=== PATIENT | male | born 1995 | race Caucasian/White ===

== ENCOUNTER 2022-05-05 20:47 | Emergency (ER) | payer OTHER ==
[2022-05-05] MEDS ORDERED: Acetaminophen/HYDROcodone 325-5 MG Tab PO ONE (20:48)
[2022-05-05] MEDS ORDERED: Insulin Lispro 100 Unit/ML 3 ML KwikPen SUBCUT ONE (20:48)
[2022-05-05] MEDS ORDERED: Morphine 2 MG/ML SYRINGE IVPUSH ONE (21:10)
[2022-05-05] MEDS ORDERED: Ketorolac 30 MG/ML SDV IVPUSH ONE (21:10)
[2022-05-05] MEDS ORDERED: Ondansetron 4 MG/2 ML SDV IVPUSH ONE (21:10)
[2022-05-05] MEDS ORDERED: Sodium Chloride 0.9% 1,000 ML IV SCH (21:15)
[2022-05-05] MEDS: Sodium Chloride 0.9% 10 ML Syringe FLUSH PRN ×3 (21:39→23:21)
[2022-05-05 21:56] LABS: ESTIMATED GFR 106 mL/min (>60)
[2022-05-05] MEDS ORDERED: Insulin Lispro 100 Unit/ML 3 ML KwikPen SUBCUT STA (22:12)
[2022-05-05] MEDS ORDERED: 50% Dextrose in Water 50 ML Syringe IVPUSH PRN (22:12)
[2022-05-05] MEDS ORDERED: Glucagon,Human Recombinant 1 MG Vial IM PRN (22:12)
[2022-05-05] MEDS ORDERED: Iopamidol 755 Mg/ML 100 ML Bottle IV ONE (22:44)
[2022-05-05] MEDS ORDERED: Iopamidol 755 MG/ML 150 ML Bottle IV ONE (22:53)
[2022-05-05] MEDS ORDERED: Morphine 2 MG/ML SYRINGE IVPUSH STA (22:55)
[2022-05-06] MEDS ORDERED: Acetaminophen/HYDROcodone 325-5 MG Tab PO STA
[2022-05-06] MEDS ORDERED: Potassium Chloride 20 MEQ Tab.ER PO STA (00:01)
== END 2022-05-06 00:20 | disposition home or self-care (01) ==
LOC: FB.ED 20:47
DX: K76.0 Fatty (change of) liver, not elsewhere classified (principal); Z88.8 Allergy status to other drugs, medicaments and biological substances; Z79.899 Other long term (current) drug therapy
CPT/HCPCS: 36415; 74177; 80053; 80307; 82150; 82947; 83690; 85025; 96361; 96374; 96375; 96376; 99283; 99284; A9270; J1815; J1885; J2270; J2405; J3490; J7030; Q9967

== ENCOUNTER 2022-07-13 07:18 | Emergency (ER) | payer OTHER ==
[2022-07-13] MEDS ORDERED: Albuterol/Ipratropium 3.0-0.5 MG/3 ML Neb Soln ONE (07:33)
[2022-07-13] MEDS ORDERED: Albuterol/Ipratropium 3.0-0.5 MG/3 ML Neb Soln NEB ONE (07:40)
[2022-07-13 07:55] LABS: ESTIMATED GFR 130 mL/min (>60)
== END 2022-07-13 09:26 | disposition home or self-care (01) ==
LOC: FB.ED 07:18
DX: J45.901 Unspecified asthma with (acute) exacerbation (principal); J21.9 Acute bronchiolitis, unspecified; K76.0 Fatty (change of) liver, not elsewhere classified; E11.65 Type 2 diabetes mellitus with hyperglycemia; I10 Essential (primary) hypertension; Z88.8 Allergy status to other drugs, medicaments and biological substances; Z79.899 Other long term (current) drug therapy; Z20.822 Contact with and (suspected) exposure to COVID-19; Z72.0 Tobacco use
CPT/HCPCS: 36415; 71046; 80053; 85025; 99285; J7620; U0002

== ENCOUNTER 2022-07-27 08:36 | Emergency (ER) | payer OTHER ==
[2022-07-30 19:26] LABS: ESTIMATED GFR 143 mL/min (>60)
== END 2022-07-27 11:44 | disposition home or self-care (01) ==
LOC: FB.ED 08:36
DX: E78.01 Familial hypercholesterolemia (principal); R00.0 Tachycardia, unspecified; R81 Glycosuria; J45.909 Unspecified asthma, uncomplicated; E78.00 Pure hypercholesterolemia, unspecified; I10 Essential (primary) hypertension; E11.9 Type 2 diabetes mellitus without complications; Z88.8 Allergy status to other drugs, medicaments and biological substances; Z79.899 Other long term (current) drug therapy; Z79.84 Long term (current) use of oral hypoglycemic drugs; Z86.16 Personal history of COVID-19
CPT/HCPCS: 36415; 80053; 80061; 81001; 84244; 85025; 87086; 99283

== ENCOUNTER 2022-10-12 18:52 | Emergency (ER) | payer OTHER ==
[2022-10-12 19:29] LABS: ESTIMATED GFR 124 mL/min (>60)
[2022-10-12] MEDS ORDERED: Ketorolac 30 MG/ML SDV IVPUSH ONE (19:30)
[2022-10-12] MEDS ORDERED: Ketorolac 30 MG/ML SDV IM ONE (19:43)
== END 2022-10-12 20:05 | disposition home or self-care (01) ==
LOC: FB.ED 18:52
DX: A08.4 Viral intestinal infection, unspecified (principal); K76.0 Fatty (change of) liver, not elsewhere classified; E87.6 Hypokalemia; E78.00 Pure hypercholesterolemia, unspecified; I10 Essential (primary) hypertension; E11.9 Type 2 diabetes mellitus without complications; E66.9 Obesity, unspecified; Z68.35 Body mass index [BMI] 35.0-35.9, adult; Z88.8 Allergy status to other drugs, medicaments and biological substances; Z79.899 Other long term (current) drug therapy; Z79.4 Long term (current) use of insulin; Z86.16 Personal history of COVID-19
CPT/HCPCS: 36415; 80053; 83605; 85025; 86140; 96372; 99284; J1885

== ENCOUNTER 2022-10-29 05:24 | Emergency (ER) | payer SELFPAY ==
[2022-10-29] MEDS ORDERED: Ondansetron 4 MG/2 ML SDV IVPUSH ONE (06:02)
[2022-10-29] MEDS ORDERED: Alum Hydroxide/Mag Hydroxide 30 ML, Lidocaine 2% 15 ML PO ONE ×2 (06:02)
[2022-10-29] MEDS ORDERED: Sodium Chloride 0.9% 1,000 ML IV ONE ×2 (06:02→07:02)
[2022-10-29] MEDS ORDERED: Ketorolac 30 MG/ML SDV IVPUSH ONE (06:02)
[2022-10-29 06:16] LABS: ESTIMATED GFR 130 mL/min (>60)
[2022-10-29] MEDS ORDERED: Morphine 4 MG/ML VIAL IVPUSH ONE ×2 (07:08→07:46)
[2022-10-29] MEDS ORDERED: Potassium Chloride 20 MEQ Tab.ER PO ONE (07:14)
[2022-10-29 07:30] LABS: CORONAVIRUS COVID-19 NAA NEGATIVE (NEGATIVE)
[2022-10-29] MEDS ORDERED: Magnesium Sulfate/Water 2 GM in Premix Bag 1 BAG IV ONE (07:43)
[2022-10-29] MEDS ORDERED: Iopamidol 755 MG/ML 150 ML Bottle IV ONE (08:03)
[2022-10-29] MEDS ORDERED: Aluminum Hydroxide/Magnesium Hydroxide Susp 30 ML Cup PO ONE (09:22)
== END 2022-10-29 09:50 | disposition home or self-care (01) ==
LOC: FB.ED 05:24
DX: K21.9 Gastro-esophageal reflux disease without esophagitis (principal); E86.0 Dehydration; E83.42 Hypomagnesemia; E87.6 Hypokalemia; R16.2 Hepatomegaly with splenomegaly, not elsewhere classified; E78.00 Pure hypercholesterolemia, unspecified; I10 Essential (primary) hypertension; J45.909 Unspecified asthma, uncomplicated; E11.9 Type 2 diabetes mellitus without complications; E66.9 Obesity, unspecified; Z68.35 Body mass index [BMI] 35.0-35.9, adult; Z72.0 Tobacco use; Z88.8 Allergy status to other drugs, medicaments and biological substances; Z79.899 Other long term (current) drug therapy; Z79.4 Long term (current) use of insulin; Z20.822 Contact with and (suspected) exposure to COVID-19
CPT/HCPCS: 0241U; 36415; 74177; 80053; 81001; 83605; 83690; 83735; 84484; 85025; 86140; 93005; 93010; 96361; 96365; 96375; 96376; 99284; 99285-25; A9270-GY; J1885; J2270; J2405; J3475; J7030; Q9967

== ENCOUNTER 2022-12-08 00:35 | Emergency (ER) | payer SELFPAY ==
[2022-12-08] MEDS ORDERED: traMADol 50 MG Tab PO ONE (00:36)
[2022-12-08] MEDS: methylPREDNISolone Sodium Succinate 40 MG/1 ML SDV IM ONE (01:16)
[2022-12-08] MEDS: HYDROmorphone 2 MG/ML SDV IM ONE (01:16)
== END 2022-12-08 01:32 | disposition home or self-care (01) ==
LOC: FB.ED 00:35
DX: M54.50 Low back pain, unspecified (principal); E11.42 Type 2 diabetes mellitus with diabetic polyneuropathy; E78.00 Pure hypercholesterolemia, unspecified; I10 Essential (primary) hypertension; J45.909 Unspecified asthma, uncomplicated; E66.9 Obesity, unspecified; Z88.8 Allergy status to other drugs, medicaments and biological substances; Z79.899 Other long term (current) drug therapy; Z86.16 Personal history of COVID-19; Z68.35 Body mass index [BMI] 35.0-35.9, adult
CPT/HCPCS: 96372; 99283; A9270; J1170; J2920

== ENCOUNTER 2023-01-04 19:09 | Emergency (ER) | payer OTHER ==
[2023-01-04] MEDS ORDERED: Acetaminophen/HYDROcodone 325-5 MG Tab PO ONE (19:10)
[2023-01-04] MEDS ORDERED: HYDROmorphone 2 MG/ML SDV IVPUSH ONE (19:27)
[2023-01-04] MEDS ORDERED: Sodium Chloride 0.9% 1,000 ML IV ONE (19:27)
[2023-01-04 19:47] LABS: ESTIMATED GFR 120 mL/min (>60)
[2023-01-04] MEDS ORDERED: Magnesium Sulfate/Water 2 GM in Premix Bag 1 BAG IV ONE (20:15)
[2023-01-04] MEDS ORDERED: Ketorolac 30 MG/ML SDV IVPUSH ONE (20:27)
[2023-01-04] MEDS ORDERED: Acetaminophen 500 MG Tab PO ONE (20:27)
== END 2023-01-04 22:23 | disposition home or self-care (01) ==
LOC: FB.ED 19:09
DX: A08.4 Viral intestinal infection, unspecified (principal); K85.90 Acute pancreatitis without necrosis or infection, unspecified; E78.1 Pure hyperglyceridemia; R11.2 Nausea with vomiting, unspecified; E78.00 Pure hypercholesterolemia, unspecified; I10 Essential (primary) hypertension; J45.909 Unspecified asthma, uncomplicated; E11.9 Type 2 diabetes mellitus without complications; E66.9 Obesity, unspecified; Z88.8 Allergy status to other drugs, medicaments and biological substances; Z86.16 Personal history of COVID-19; Z79.4 Long term (current) use of insulin; Z79.899 Other long term (current) drug therapy; Z68.34 Body mass index [BMI] 34.0-34.9, adult
CPT/HCPCS: 36415; 80053; 83690; 83735; 85025; 86140; 96361; 96365; 96366; 96375; 99283; 99284-25; A9270-GY; J1170; J1885; J3475; J7030

== ENCOUNTER 2023-01-11 15:42 | Emergency (ER) | payer OTHER ==
[2023-01-11 16:36] LABS: ESTIMATED GFR 124 mL/min (>60)
== END 2023-01-11 17:56 | disposition home or self-care (01) ==
LOC: FB.ED 15:42
DX: M51.36 Other intervertebral disc degeneration, lumbar region (principal); G89.29 Other chronic pain; E11.9 Type 2 diabetes mellitus without complications; E78.00 Pure hypercholesterolemia, unspecified; I10 Essential (primary) hypertension; J45.909 Unspecified asthma, uncomplicated; E66.9 Obesity, unspecified; Z68.35 Body mass index [BMI] 35.0-35.9, adult; Z88.8 Allergy status to other drugs, medicaments and biological substances; Z79.4 Long term (current) use of insulin; Z79.899 Other long term (current) drug therapy; Z86.16 Personal history of COVID-19
CPT/HCPCS: 36415; 80053; 80307; 81001; 85025; 99283

== ENCOUNTER 2023-02-01 06:20 | Emergency (ER) | payer SELFPAY ==
[2023-02-01] MEDS ORDERED: hydrOXYzine HCl 50 MG/ML SDV IM ONE (06:42)
[2023-02-01] MEDS ORDERED: Morphine 10 MG/ML SDV IM ONE (06:42)
[2023-02-01 07:10] LABS: ESTIMATED GFR 130 mL/min (>60)
[2023-02-01] MEDS ORDERED: Alum Hydroxide/Mag Hydroxide 15 ML, Lidocaine 2% 15 ML PO ONE ×2 (08:44)
[2023-02-01] MEDS ORDERED: Sucralfate 1 GM Tab PO ONE (08:45)
== END 2023-02-01 09:25 | disposition home or self-care (01) ==
LOC: FB.ED 06:20
DX: K52.9 Noninfective gastroenteritis and colitis, unspecified (principal); K20.90 Esophagitis, unspecified without bleeding; E78.00 Pure hypercholesterolemia, unspecified; I10 Essential (primary) hypertension; J45.909 Unspecified asthma, uncomplicated; E66.9 Obesity, unspecified; Z88.8 Allergy status to other drugs, medicaments and biological substances; Z79.899 Other long term (current) drug therapy; Z72.0 Tobacco use; Z68.36 Body mass index [BMI] 36.0-36.9, adult
CPT/HCPCS: 36415; 80053; 83605; 85025; 86140; 96372; 99284; A9270; J2270; J3410

== ENCOUNTER 2023-02-10 12:46 | Emergency (ER) | payer BC, OTHER ==
[2023-02-10] MEDS ORDERED: Sodium Chloride 0.9% 10 ML Syringe FLUSH PRN (13:08)
[2023-02-10] MEDS ORDERED: Ondansetron 4 MG/2 ML SDV IVPUSH ONE (13:11)
[2023-02-10] MEDS ORDERED: Ketorolac 30 MG/ML SDV IVPUSH ONE (13:12)
[2023-02-10] MEDS ORDERED: Morphine 4 MG/ML VIAL IVPUSH ONE (13:12)
[2023-02-10] MEDS ORDERED: Sodium Chloride 0.9% 1,000 ML IV SCH (13:15)
[2023-02-10] MEDS ORDERED: Iopamidol 755 Mg/ML 100 ML Bottle IV ONE (13:44)
[2023-02-10] MEDS ORDERED: Magnesium Sulfate/Water 2 GM in Premix Bag 1 BAG IV ONE (14:08)
[2023-02-10] MEDS ORDERED: Magnesium Sulfate/Water 50 ML ONE (14:13)
[2023-02-10 14:26] LABS: ESTIMATED GFR 120 mL/min (>60)
[2023-02-10] MEDS ORDERED: Acetaminophen/oxyCODONE 325-5 MG Tab PO STA (15:04)
== END 2023-02-10 15:35 | disposition home or self-care (01) ==
LOC: FB.ED 12:46
DX: K29.70 Gastritis, unspecified, without bleeding (principal); K21.9 Gastro-esophageal reflux disease without esophagitis; E83.42 Hypomagnesemia; E78.00 Pure hypercholesterolemia, unspecified; I10 Essential (primary) hypertension; E11.9 Type 2 diabetes mellitus without complications; F17.210 Nicotine dependence, cigarettes, uncomplicated; E66.9 Obesity, unspecified; Z68.36 Body mass index [BMI] 36.0-36.9, adult; Z88.8 Allergy status to other drugs, medicaments and biological substances; Z79.899 Other long term (current) drug therapy; Z79.4 Long term (current) use of insulin
CPT/HCPCS: 36415; 74177; 80053; 81001; 82150; 83690; 83735; 85025; 96361; 96365; 96375; 96376; 99284; A9270; J1885; J2270; J2405; J3475; J3490; J7030; Q9967; 99283

== ENCOUNTER 2023-02-22 20:17 | Emergency (ER) | payer BC ==
[2023-02-22] MEDS ORDERED: Acetaminophen 500 MG Tab PO ONE (23:12)
[2023-02-23 01:20] LABS: ESTIMATED GFR 136 mL/min (>60)
[2023-02-23 01:22] LABS: ACETAMINOPHEN < 10 ug/mL (<2)
== END 2023-02-23 00:19 | disposition home or self-care (01) ==
LOC: FB.ED 20:17
DX: F43.20 Adjustment disorder, unspecified (principal); R45.851 Suicidal ideations; E11.65 Type 2 diabetes mellitus with hyperglycemia; E78.00 Pure hypercholesterolemia, unspecified; I10 Essential (primary) hypertension; J45.909 Unspecified asthma, uncomplicated; E66.9 Obesity, unspecified; Z91.199 Patient's noncompliance with other medical treatment and regimen due to unspecified reason; Z68.30 Body mass index [BMI] 30.0-30.9, adult; Z88.8 Allergy status to other drugs, medicaments and biological substances; Z86.16 Personal history of COVID-19; Z72.0 Tobacco use; Z79.899 Other long term (current) drug therapy; Z79.4 Long term (current) use of insulin
CPT/HCPCS: 36415; 80053; 80143; 80179; 80307; 84443; 85025; 99284; A9270-GY

== ENCOUNTER 2023-02-28 07:33 | Emergency (ER) | payer BC | END 2023-02-28 09:01 | disposition home or self-care (01) | LOC: FB.ED 07:33 | DX: M79.661 Pain in right lower leg (principal); I10 Essential (primary) hypertension; E78.00 Pure hypercholesterolemia, unspecified; J45.909 Unspecified asthma, uncomplicated; E11.9 Type 2 diabetes mellitus without complications; E66.9 Obesity, unspecified; Z68.37 Body mass index [BMI] 37.0-37.9, adult; Z86.16 Personal history of COVID-19; Z88.8 Allergy status to other drugs, medicaments and biological substances; Z79.4 Long term (current) use of insulin; Z79.899 Other long term (current) drug therapy; Z72.0 Tobacco use | CPT/HCPCS: 73590-RT; 99283 ==

== ENCOUNTER 2023-02-28 21:24 | Emergency (ER) | payer BC ==
[2023-02-28] MEDS ORDERED: Iopamidol 755 Mg/ML 100 ML Bottle IV ONE (22:11)
[2023-02-28] MEDS ORDERED: Ondansetron 4 MG/2 ML SDV IVPUSH ONE (22:14)
[2023-02-28] MEDS ORDERED: Ketorolac 30 MG/ML SDV IVPUSH ONE (22:14)
[2023-03-01 01:52] LABS: SODIUM,NA 129 mmol/L (135-145)
[2023-03-01 01:53] LABS: CARBON DIOXIDE,CO2 18 mmol/L (21-32); CHLORIDE,CL 97 mmol/L (100-110); POTASSIUM,K 4.1 mmol/L (3.5-5.3)
[2023-03-01 01:54] LABS: GLUCOSE RANDOM 419 mg/dL (80-116)
[2023-03-01 01:55] LABS: BLOOD UREA NITROGEN,BUN 11 mg/dL (7-18); CREATININE 0.6 mg/dL (0.70-1.30); ESTIMATED GFR 136 mL/min (>60)
[2023-03-01 01:57] LABS: BUN/CREATININE RATIO 17.2 (9-20); CALCIUM 8.4 mg/dL (8.6-10.2); PROTEIN TOTAL,TP 6.7 g/dL (6.0-8.0)
[2023-03-01 01:58] LABS: A/G RATIO 0.5; ALBUMIN 2.3 g/dL (3.5-5.2)
[2023-03-01 01:59] LABS: ALKALINE PHOSPHATASE 138 IU/L (56-112); BILIRUBIN TOTAL 0.5 mg/dL (0.1-1.3)
[2023-03-01 02:00] LABS: ALANINE AMINOTRANSFERASE,ALT 49 U/L (12-36); ASPARTATE AMNIOTRANSFERASE,AST 37 IU/L (5-25)
[2023-03-01 02:01] LABS: AMYLASE 77 U/L (25-115)
[2023-03-01 02:59] LABS: RED BLOOD CELL COUNT 4.56 x10(6)uL (3.90-5.90); WHITE BLOOD CELL COUNT,WBC 15.2 x10-3/uL (3.2-10.1)
[2023-03-01 03:00] LABS: PLATELET COUNT,PLT 336 x10(3)uL (117-477)
[2023-03-01 03:10] LABS: HEMOGLOBIN 23.8 g/dL (12.9-17.7)
[2023-03-01 03:11] LABS: HEMATOCRIT 38.7 % (38.3-50.1); MEAN CORPUSCULAR VOLUME 84.9 fL (80.8-98.7)
[2023-03-01 03:12] LABS: MEAN CORPUSCULAR HEMOGLOBIN 52.2 pg (27.0-33.3); MEAN CORPUSCULAR HGB CONC 61.5 g/dL (28.7-35.3)
[2023-03-01 03:14] LABS: MEAN PLATELET VOLUME 11.3 fL (6.7-11.0); RED CELL DISTRIBUTION WIDTH 12.2 % (12.4-15.0)
[2023-03-01 03:15] LABS: LYMPHOCYTES ABSOLUTE AUTO 1.8 x10-3/uL (0.5-4.5); MONOCYTES ABSOLUTE AUTO 1.2 x10-3/uL (0.0-1.2); NEUTROPHILS ABSOLUTE AUTO 7.8 x10-3/uL (1.7-6.9)
[2023-03-01 03:17] LABS: BAND PERCENT MAN 2 % (0-6); LYMPHOCYTES PERCENT MAN 12 % (13-37); SEG NEUTROPHILS PERCENT MAN 51 % (46-82)
[2023-03-01 03:18] LABS: MONOCYTES PERCENT MAN 8 % (4-12)
== END 2023-02-28 23:34 | disposition home or self-care (01) ==
LOC: FB.ED 21:24
DX: R10.12 Left upper quadrant pain (principal); E78.00 Pure hypercholesterolemia, unspecified; I10 Essential (primary) hypertension; E11.9 Type 2 diabetes mellitus without complications; E66.9 Obesity, unspecified; Z68.37 Body mass index [BMI] 37.0-37.9, adult; Z86.16 Personal history of COVID-19; Z88.8 Allergy status to other drugs, medicaments and biological substances; Z79.899 Other long term (current) drug therapy; Z79.4 Long term (current) use of insulin
CPT/HCPCS: 36415; 74177; 80053; 82150; 83690; 85025; 96374; 96375; 99283; 99284; J1885; J2405; Q9967

== ENCOUNTER 2023-03-08 19:08 | Emergency (ER) | payer BC ==
[2023-03-08] MEDS ORDERED: Ondansetron 4 MG Tab.DIS PO ONE (19:09)
[2023-03-08] MEDS ORDERED: Morphine 4 MG/ML VIAL IVPUSH ONE (19:22)
[2023-03-08] MEDS ORDERED: Sodium Chloride 0.9% 10 ML Syringe FLUSH PRN (19:22)
[2023-03-08] MEDS ORDERED: Ondansetron 4 MG/2 ML SDV IVPUSH ONE (19:22)
[2023-03-08] MEDS ORDERED: Sodium Chloride 0.9% 1,000 ML IV SCH (19:30)
[2023-03-08 19:40] LABS: BASOPHILS ABSOLUTE AUTO 0.1 x10-3/uL (0.0-0.3); BASOPHILS PERCENT AUTO 0.9 % (0.3-3.8); EOSINOPHILS ABSOLUTE AUTO 0.1 x10-3/uL (0.0-0.6); EOSINOPHILS PERCENT AUTO 1.5 % (0.1-6.8); HEMATOCRIT 34.8 % (38.3-50.1); HEMOGLOBIN 11.7 g/dL (12.9-17.7); LYMPHOCYTES ABSOLUTE AUTO 3.7 x10-3/uL (0.5-4.5); LYMPHOCYTES PERCENT AUTO 42.8 % (15.8-45.3); MEAN CORPUSCULAR HEMOGLOBIN 29.1 pg (27.0-33.3); MEAN CORPUSCULAR HGB CONC 33.6 g/dL (28.7-35.3); MEAN CORPUSCULAR VOLUME 86.5 fL (80.8-98.7); MEAN PLATELET VOLUME 8.8 fL (6.7-11.0); MONOCYTES ABSOLUTE AUTO 0.5 x10-3/uL (0.0-1.2); MONOCYTES PERCENT AUTO 5.4 % (5.5-15.2); NEUTROPHILS ABSOLUTE AUTO 4.2 x10-3/uL (1.7-6.9); NEUTROPHILS PERCENT AUTO 49.4 % (40.3-71.8); PLATELET COUNT,PLT 307 x10(3)uL (117-477); RED BLOOD CELL COUNT 4.02 x10(6)uL (3.90-5.90); RED CELL DISTRIBUTION WIDTH 12.9 % (12.4-15.0); WHITE BLOOD CELL COUNT,WBC 8.5 x10-3/uL (3.2-10.1)
[2023-03-08 19:48] LABS: BLOOD UREA NITROGEN,BUN 15 mg/dL (7-18); BUN/CREATININE RATIO 16.7 (9-20); CALCIUM 8.8 mg/dL (8.6-10.2); CARBON DIOXIDE,CO2 27 mmol/L (21-32); CHLORIDE,CL 105 mmol/L (100-110); CREATININE 0.9 mg/dL (0.70-1.30); EST CRCL DRUG DOSING (CG) 139.33 mL/min; ESTIMATED GFR 120 mL/min (>60); GLUCOSE RANDOM 160 mg/dL (80-116); POTASSIUM,K 3.6 mmol/L (3.5-5.3); SODIUM,NA 142 mmol/L (135-145)
[2023-03-08 19:53] LABS: A/G RATIO 1.4; ALANINE AMINOTRANSFERASE,ALT 47 U/L (12-36); ALBUMIN 3.7 g/dL (3.5-5.2); ALKALINE PHOSPHATASE 42 IU/L (56-112); AMYLASE 41 U/L (25-115); ASPARTATE AMNIOTRANSFERASE,AST 64 IU/L (5-25); BILIRUBIN TOTAL 0.3 mg/dL (0.1-1.3); PROTEIN TOTAL,TP 6.4 g/dL (6.0-8.0)
[2023-03-08 19:54] LABS: MAGNESIUM 1.4 mg/dL (1.8-2.5)
[2023-03-08] MEDS ORDERED: Magnesium Sulfate/Water 2 GM in Premix Bag 1 BAG IV ONE ×2 (20:15→20:24)
[2023-03-08] MEDS ORDERED: Iopamidol 755 Mg/ML 100 ML Bottle IV ONE (20:17)
[2023-03-08] MEDS ORDERED: Ketorolac 30 MG/ML SDV IVPUSH ONE (21:18)
[2023-03-08 22:44] LABS: BILIRUBIN,URINE NEGATIVE (NEGATIVE); GLUCOSE,URINE NORMAL (NORMAL); KETONES,URINE NEGATIVE (NEGATIVE); LEUKOCYTE ESTERASE,URINE NEGATIVE (NEGATIVE); NITRITE,URINE NEGATIVE (NEGATIVE); OCCULT BLOOD,URINE NEGATIVE (NEGATIVE); PROTEIN,URINE NEGATIVE (NEGATIVE); UROBILINOGEN,URINE NORMAL (NEGATIVE)
[2023-03-08 22:52] LABS: APPEARANCE,URINE CLEAR (CLEAR); BACTERIA,URINE RARE (NS); COLOR,URINE YELLOW (YELLOW); RBC,URINE 0-5 (0-5); SQUAMOUS EPITHELIAL CELLS,UR RARE (NS,R,O); WBC,URINE 0-5 (0-5)
== END 2023-03-08 22:45 | disposition home or self-care (01) ==
LOC: FB.ED 19:08
DX: K85.90 Acute pancreatitis without necrosis or infection, unspecified (principal); E83.42 Hypomagnesemia; E78.1 Pure hyperglyceridemia; E78.00 Pure hypercholesterolemia, unspecified; I10 Essential (primary) hypertension; J45.909 Unspecified asthma, uncomplicated; E11.9 Type 2 diabetes mellitus without complications; E66.9 Obesity, unspecified; Z68.35 Body mass index [BMI] 35.0-35.9, adult; Z88.8 Allergy status to other drugs, medicaments and biological substances; Z79.899 Other long term (current) drug therapy; Z79.4 Long term (current) use of insulin
CPT/HCPCS: 36415; 74177; 80053; 80061; 81001; 82150; 83690; 83735; 85025; 96361; 96365; 96366; 96375; 99283; 99284-25; J1885; J2270; J2405; J3475; J7030; Q0162; Q9967

== ENCOUNTER 2023-04-06 19:36 | Emergency (ER) | payer BC, OTHER ==
[2023-04-06] MEDS ORDERED: Sodium Chloride 0.9% 10 ML Syringe FLUSH PRN (20:07)
[2023-04-06] MEDS ORDERED: Prochlorperazine 10 MG/2 ML SDV IVPUSH ONE (20:07)
[2023-04-06] MEDS ORDERED: diphenhydrAMINE 50 MG/ML SDV IVPUSH ONE (20:07)
[2023-04-06] MEDS ORDERED: Sodium Chloride 0.9% 1,000 ML IV ONE (20:07)
[2023-04-06] MEDS ORDERED: Ketorolac 30 MG/ML SDV IVPUSH ONE (20:09)
[2023-04-06 20:42] LABS: WHITE BLOOD CELL COUNT,WBC 9.2 x10-3/uL (3.2-10.1)
[2023-04-06 20:43] LABS: HEMATOCRIT 38.2 % (38.3-50.1); MEAN CORPUSCULAR VOLUME 86.1 fL (80.8-98.7); MEAN PLATELET VOLUME 8.6 fL (6.7-11.0); PLATELET COUNT,PLT 337 x10(3)uL (117-477); RED BLOOD CELL COUNT 4.44 x10(6)uL (3.90-5.90); RED CELL DISTRIBUTION WIDTH 13.4 % (12.4-15.0)
[2023-04-06 21:14] LABS: BILIRUBIN,URINE NEGATIVE (NEGATIVE); GLUCOSE,URINE NORMAL (NORMAL); KETONES,URINE NEGATIVE (NEGATIVE); LEUKOCYTE ESTERASE,URINE NEGATIVE (NEGATIVE); NITRITE,URINE NEGATIVE (NEGATIVE); OCCULT BLOOD,URINE NEGATIVE (NEGATIVE); PROTEIN,URINE 500 mg/dL (NEGATIVE); UROBILINOGEN,URINE NORMAL (NEGATIVE)
[2023-04-06 21:16] LABS: APPEARANCE,URINE CLEAR (CLEAR); BACTERIA,URINE RARE (NS); COLOR,URINE YELLOW (YELLOW); RBC,URINE 0-5 (0-5); SQUAMOUS EPITHELIAL CELLS,UR OCCASIONAL (NS,R,O); WBC,URINE 0-5 (0-5)
[2023-04-06 21:56] LABS: MEAN CORPUSCULAR HEMOGLOBIN 29.9 pg (27.0-33.3)
[2023-04-06 21:57] LABS: MEAN CORPUSCULAR HGB CONC 34.4 g/dL (28.7-35.3)
[2023-04-06 22:03] LABS: EOSINOPHILS PERCENT MAN 2 % (0-5); LYMPHOCYTES PERCENT MAN 46 % (13-37); MONOCYTES PERCENT MAN 3 % (4-12); SEG NEUTROPHILS PERCENT MAN 49 % (46-82)
[2023-04-07 00:17] LABS: POTASSIUM,K 3.5 mmol/L (3.5-5.3)
[2023-04-07 00:18] LABS: A/G RATIO 0.8; ALANINE AMINOTRANSFERASE,ALT 32 U/L (12-36); ALBUMIN 3.3 g/dL (3.5-5.2); ALKALINE PHOSPHATASE 92 IU/L (56-112); ASPARTATE AMNIOTRANSFERASE,AST 47 IU/L (5-25); BILIRUBIN TOTAL 0.6 mg/dL (0.1-1.3); BLOOD UREA NITROGEN,BUN 10 mg/dL (7-18); BUN/CREATININE RATIO 16.7 (9-20); CALCIUM 8.7 mg/dL (8.6-10.2); CARBON DIOXIDE,CO2 21 mmol/L (21-32); CHLORIDE,CL 101 mmol/L (100-110); CREATININE 0.6 mg/dL (0.70-1.30); ESTIMATED GFR 136 mL/min (>60); GLUCOSE RANDOM 181 mg/dL (80-116); MAGNESIUM 1.3 mg/dL (1.8-2.5); PROTEIN TOTAL,TP 7.3 g/dL (6.0-8.0)
[2023-04-07 00:21] LABS: SODIUM,NA 133 mmol/L (135-145)
[2023-04-07 00:23] LABS: LIPASE 94 U/L (16-77)
[2023-04-07 00:24] LABS: C-REACTIVE PROTEIN < 0.5 mg/dL (0.5-0.9)
== END 2023-04-06 20:55 | disposition left against medical advice (07) ==
LOC: FB.ED 19:36
DX: R10.12 Left upper quadrant pain (principal); R11.2 Nausea with vomiting, unspecified; R19.7 Diarrhea, unspecified; I10 Essential (primary) hypertension; E78.00 Pure hypercholesterolemia, unspecified; J45.909 Unspecified asthma, uncomplicated; E11.9 Type 2 diabetes mellitus without complications; E66.9 Obesity, unspecified; Z72.0 Tobacco use; Z88.8 Allergy status to other drugs, medicaments and biological substances; Z86.16 Personal history of COVID-19; Z79.899 Other long term (current) drug therapy; Z79.4 Long term (current) use of insulin
CPT/HCPCS: 36415; 80053; 81001; 83605; 83690; 83735; 85025; 86140; 96374; 96375; 99284; J0780; J1200; J1885; J3490; J7030

== ENCOUNTER 2024-01-16 17:49 | Emergency (ER) | payer MEDICAID ==
[2024-01-16] MEDS ORDERED: Sodium Chloride 0.9% 10 ML Syringe FLUSH PRN (18:07)
[2024-01-16 18:26] LABS: BASOPHILS PERCENT AUTO 0.5 % (0.3-3.8); EOSINOPHILS PERCENT AUTO 0.1 % (0.1-6.8); HEMATOCRIT 37.9 % (38.3-50.1); HEMOGLOBIN 12.8 g/dL (12.9-17.7); LYMPHOCYTES ABSOLUTE AUTO 2.6 x10-3/uL (0.5-4.5); LYMPHOCYTES PERCENT AUTO 54.3 % (15.8-45.3); MEAN CORPUSCULAR HGB CONC 33.7 g/dL (28.7-35.3); MEAN PLATELET VOLUME 8.3 fL (6.7-11.0); MONOCYTES ABSOLUTE AUTO 0.5 x10-3/uL (0.0-1.2); MONOCYTES PERCENT AUTO 10.4 % (5.5-15.2); NEUTROPHILS ABSOLUTE AUTO 1.6 x10-3/uL (1.7-6.9); NEUTROPHILS PERCENT AUTO 34.7 % (40.3-71.8); PLATELET COUNT,PLT 248 x10(3)uL (117-477); RED BLOOD CELL COUNT 4.56 x10(6)uL (3.90-5.90); RED CELL DISTRIBUTION WIDTH 13.4 % (12.4-15.0); WHITE BLOOD CELL COUNT,WBC 4.7 x10-3/uL (3.2-10.1)
[2024-01-16 18:28] LABS: BLOOD UREA NITROGEN,BUN 18 mg/dL (7-18); BUN/CREATININE RATIO 25.7 (9-20); CALCIUM 8.9 mg/dL (8.6-10.2); CARBON DIOXIDE,CO2 30 mmol/L (21-32); CHLORIDE,CL 103 mmol/L (100-110); CREATININE 0.7 mg/dL (0.70-1.30); EST CRCL DRUG DOSING (CG) 177.56 mL/min; ESTIMATED GFR 129 mL/min (>60); GLUCOSE RANDOM 126 mg/dL (80-116); POTASSIUM,K 3.1 mmol/L (3.5-5.3); SODIUM,NA 141 mmol/L (135-145)
[2024-01-16] MEDS: Sodium Chloride 0.9% 1,000 ML IV SCH (18:28)
[2024-01-16] MEDS: Ondansetron 4 MG/2 ML SDV IVPUSH ONE (18:30)
[2024-01-16] MEDS: Morphine 4 MG/ML VIAL IVPUSH ONE (18:31)
[2024-01-16 18:32] LABS: INR 0.88 (1.00-1.24); PROTHROMBIN TIME 9.3 sec (9.0-11.1)
[2024-01-16] MEDS: Pantoprazole 40 MG Vial IVPUSH STA (18:32)
[2024-01-16 18:33] LABS: A/G RATIO 1.1; ALANINE AMINOTRANSFERASE,ALT 36 U/L (12-36); ALBUMIN 3.5 g/dL (3.5-5.2); ALKALINE PHOSPHATASE 64 IU/L (56-112); AMYLASE 35 U/L (25-115); ASPARTATE AMNIOTRANSFERASE,AST 34 IU/L (5-25); BILIRUBIN TOTAL 0.3 mg/dL (0.1-1.3); PROTEIN TOTAL,TP 6.7 g/dL (6.0-8.0)
[2024-01-16 18:34] LABS: PTT,PARTIAL THROMBOPLSTIN TIME 25.7 SECONDS (24.4-33.2)
[2024-01-16] MEDS: Alum Hydroxide/Mag Hydroxide 30 ML, Lidocaine 2% 30 ML PO ONE (18:57)
[2024-01-16] MEDS: Iopamidol 755 Mg/ML 100 ML Bottle IV SCH (19:30)
[2024-01-16] MEDS: Ketorolac 30 MG/ML SDV IVPUSH ONE (20:16)
== END 2024-01-16 20:30 | disposition home or self-care (01) ==
LOC: FB.ED 17:49
DX: K29.70 Gastritis, unspecified, without bleeding (principal); K27.9 Peptic ulcer, site unspecified, unspecified as acute or chronic, without hemorrhage or perforation; K21.9 Gastro-esophageal reflux disease without esophagitis; I10 Essential (primary) hypertension; E78.00 Pure hypercholesterolemia, unspecified; J45.909 Unspecified asthma, uncomplicated; E11.9 Type 2 diabetes mellitus without complications; E66.9 Obesity, unspecified; Z86.16 Personal history of COVID-19; Z87.891 Personal history of nicotine dependence; Z79.4 Long term (current) use of insulin; Z79.899 Other long term (current) drug therapy; Z88.8 Allergy status to other drugs, medicaments and biological substances; Z68.41 Body mass index [BMI] 40.0-44.9, adult
CPT/HCPCS: 36415; 74177; 80053; 82150; 83690; 85025; 85610; 85730; 96361; 96374; 96375; 99283; 99284-25; A9270-GY; C9113; J1885; J2270; J2405; J7030; Q9967

== ENCOUNTER 2024-04-12 10:30 | Emergency (ER) | payer MEDICAID ==
[2024-04-12] MEDS ORDERED: Sodium Chloride 0.9% 10 ML Syringe FLUSH PRN (10:44)
[2024-04-12] MEDS: Ondansetron 4 MG/2 ML SDV IVPUSH ONE (11:00)
[2024-04-12] MEDS: Sodium Chloride 0.9% 1,000 ML IV ONE (11:01)
[2024-04-12 11:08] LABS: BASOPHILS PERCENT AUTO 0.6 % (0.3-3.8); BLOOD UREA NITROGEN,BUN 9 mg/dL (7-18); CALCIUM 8.7 mg/dL (8.6-10.2); CARBON DIOXIDE,CO2 26 mmol/L (21-32); CHLORIDE,CL 104 mmol/L (100-110); EOSINOPHILS PERCENT AUTO 0.1 % (0.1-6.8); EST CRCL DRUG DOSING (CG) 124.29 mL/min; ESTIMATED GFR 105 mL/min (>60); GLUCOSE RANDOM 163 mg/dL (80-116); HEMATOCRIT 40.1 % (38.3-50.1); HEMOGLOBIN 13.1 g/dL (12.9-17.7); LYMPHOCYTES ABSOLUTE AUTO 3.3 x10-3/uL (0.5-4.5); LYMPHOCYTES PERCENT AUTO 42.5 % (15.8-45.3); MEAN CORPUSCULAR HEMOGLOBIN 27.6 pg (27.0-33.3); MEAN CORPUSCULAR HGB CONC 32.7 g/dL (28.7-35.3); MEAN CORPUSCULAR VOLUME 84.3 fL (80.8-98.7); MONOCYTES ABSOLUTE AUTO 0.5 x10-3/uL (0.0-1.2); MONOCYTES PERCENT AUTO 6.4 % (5.5-15.2); NEUTROPHILS ABSOLUTE AUTO 3.9 x10-3/uL (1.7-6.9); NEUTROPHILS PERCENT AUTO 50.4 % (40.3-71.8); PLATELET COUNT,PLT 285 x10(3)uL (117-477); POTASSIUM,K 3.4 mmol/L (3.5-5.3); RED BLOOD CELL COUNT 4.76 x10(6)uL (3.90-5.90); RED CELL DISTRIBUTION WIDTH 13.9 % (12.4-15.0); SODIUM,NA 143 mmol/L (135-145); WHITE BLOOD CELL COUNT,WBC 7.7 x10-3/uL (3.2-10.1)
[2024-04-12 11:10] LABS: C-REACTIVE PROTEIN <0.50 mg/dL (<0.50); LIPASE 39 U/L (16-77)
[2024-04-12 11:13] LABS: A/G RATIO 1.3; ALANINE AMINOTRANSFERASE,ALT 40 U/L (12-36); ALBUMIN 3.7 g/dL (3.5-5.2); ALKALINE PHOSPHATASE 77 IU/L (56-112); ASPARTATE AMNIOTRANSFERASE,AST 34 IU/L (5-25); BILIRUBIN TOTAL 0.4 mg/dL (0.1-1.3); MAGNESIUM 1.3 mg/dL (1.8-2.5); PROTEIN TOTAL,TP 6.6 g/dL (6.0-8.0)
[2024-04-12] MEDS ORDERED: Magnesium Sulfate/Water 2 GM in Premix Bag 1 BAG IV ONE (11:45)
[2024-04-12] MEDS: Magnesium Oxide 400 MG Tab PO ONE (11:53)
[2024-04-12] MEDS: Potassium Chloride 20 MEQ Tab.ER PO ONE (11:53)
[2024-04-12] MEDS: Ketorolac 30 MG/ML SDV IVPUSH ONE (11:54)
== END 2024-04-12 11:55 | disposition left against medical advice (07) ==
LOC: FB.ED 10:30
DX: R10.9 Unspecified abdominal pain (principal); R11.2 Nausea with vomiting, unspecified; E86.0 Dehydration; E83.42 Hypomagnesemia; E87.6 Hypokalemia; I10 Essential (primary) hypertension; J45.909 Unspecified asthma, uncomplicated; E78.00 Pure hypercholesterolemia, unspecified; E66.9 Obesity, unspecified; E11.9 Type 2 diabetes mellitus without complications; Z88.8 Allergy status to other drugs, medicaments and biological substances; Z79.4 Long term (current) use of insulin; Z79.899 Other long term (current) drug therapy; Z86.16 Personal history of COVID-19; Z68.41 Body mass index [BMI] 40.0-44.9, adult
CPT/HCPCS: 80053; 83690; 83735; 85025; 86140; 96361; 96374; 99284; J2405; J7030

== ENCOUNTER 2025-06-29 16:17 | Emergency (ER) | payer OTHER ==
[2025-06-29] MEDS: Ketorolac 30 MG/ML SDV IM ONE (16:40)
[2025-06-29] MEDS: HYDROmorphone 2 MG/ML SDV IM ONE (16:41)
== END 2025-06-29 18:06 | disposition home or self-care (01) ==
LOC: FB.ED 16:17
DX: S30.0XXA Contusion of lower back and pelvis, initial encounter (principal); E78.00 Pure hypercholesterolemia, unspecified; I10 Essential (primary) hypertension; E11.9 Type 2 diabetes mellitus without complications; J45.909 Unspecified asthma, uncomplicated; Z88.8 Allergy status to other drugs, medicaments and biological substances; Z79.899 Other long term (current) drug therapy; Z79.4 Long term (current) use of insulin; Z86.16 Personal history of COVID-19; W17.89XA Other fall from one level to another, initial encounter; Y93.89 Activity, other specified; Y99.0 Civilian activity done for income or pay
CPT/HCPCS: 72131; 96372; 99283; J1171; J1885

== ENCOUNTER 2025-07-01 16:48 | Emergency (ER) | payer MEDICAID, OTHER ==
[2025-07-01] MEDS: Ketorolac 30 MG/ML SDV IM ONE (17:54)
[2025-07-01] MEDS: methylPREDNISolone Sodium Succinate 125 MG/2 ML SDV IM ONE (17:55)
== END 2025-07-01 18:41 | disposition home or self-care (01) ==
LOC: FB.ED 16:48
DX: M54.50 Low back pain, unspecified (principal); I10 Essential (primary) hypertension; E78.00 Pure hypercholesterolemia, unspecified; E11.9 Type 2 diabetes mellitus without complications; Z86.16 Personal history of COVID-19; Z88.8 Allergy status to other drugs, medicaments and biological substances
CPT/HCPCS: 96372; 99283; J1885; J2919